=== PATIENT | male | born 1975 | race African-American/Black ===

== ENCOUNTER 2022-04-08 16:44 | Emergency (ER) | payer MEDICAID ==
[~2022-04-08] VITALS: Ht 177.8 cm; Wt 83.0 kg
[2022-04-08 16:52] VITALS: BP 176/116
[2022-04-08] MEDS ORDERED: BACITRACIN 15GM TUBE TOP ONE (18:45)
[2022-04-08] MEDS ORDERED: TETANUS AND DIPHTHERIA TOX/PF 0.5ML SYR (ADULT) IM ONE (18:45)
[2022-04-08] MEDS ORDERED: KETOROLAC 30MG/ML VIAL IM ONE (18:45)
[2022-04-08] MEDS ORDERED: TETANUS, DIPHTHERIA, PERTUSSIS VAC/PF 0.5ML (>10YR OLD) IM ONE (19:15)
[2022-04-08] MEDS ORDERED: OXYC-100 MT (22:48)
[2022-04-08] MEDS ORDERED: NALO4SPR BOTHNSTRLS (22:48)
== END 2022-04-08 23:27 | disposition home or self-care (01) ==
LOC: ER 16:44
DX: S52.592A Other fractures of lower end of left radius, initial encounter for closed fracture (principal); S50.311A Abrasion of right elbow, initial encounter; S90.111A Contusion of right great toe without damage to nail, initial encounter; M25.532 Pain in left wrist; M25.511 Pain in right shoulder; M79.631 Pain in right forearm; M79.671 Pain in right foot; G89.11 Acute pain due to trauma; V28.09XA Other motorcycle driver injured in noncollision transport accident in nontraffic accident, initial encounter; Y93.I9 Activity, other involving external motion; Y92.488 Other paved roadways as the place of occurrence of the external cause; R03.0 Elevated blood-pressure reading, without diagnosis of hypertension
CPT/HCPCS: 29105; 73030; 73080; 73110; 73200; 73630; 90471; 90715; 96372; 99284; J1885; 90714